=== PATIENT | male | born 1980 ===

== ENCOUNTER → 2017-11-25 | Outpatient (CLI) | payer BC ==
[~2017-11-25] MED LIST: ACYC-1 PO
[2017-11-25 15:13] LABS: PLATELET COUNT, AUTOMATED 315 K/uL (150-450)
--- NOTE | 2017-11-25 17:01 | RADIOLOGY IMAGING REPORT ---
FACILITY: [facility] PATIENT NAME: Kaiden Khan : 1980 MR: [id number] V: [id number] EXAM DATE: ORDERING PHYSICIAN: IVÁN OLIVO TECHNOLOGIST: Location: [facility] [place] Patient: Kaiden Khan : 1980 Visit/Account:[id number] Date of Sevice: 11/25/2017 EXAMINATION: CT ABDOMEN AND PELVIS WITHOUT CONTRAST COMPARISON: None. HISTORY: Right lower quadrant and right flank pain for one week. Hematuria. PROCEDURE: Multiplanar noncontrast CT of the abdomen and pelvis. One of the following dose optimizati on techniques was utilized in the performance of this exam: Automated exposure control; adjustment of the mA and/or kV according to the patient's size; or use of an iterative reconstruction technique. Specific details can be referenced in the facility's radiology CT exam operational policy. FINDINGS: Evaluation of the solid and viscus parenchymal organs and vascular structures is limited wi thout the benefit of IV contrast. Visualized thorax: Negative. Liver: Noncontrast imaging of the visualized liver is within normal limits. Gallbladder and biliary system: Negative Spleen: Punctate calcification suggestive of old granulomatous disease. Spleen size is normal. Pancreas: Noncontrast imaging of the pancreas is within normal limits. Adrenal glands: Negative. Kidneys and bladder: Right kidney moderate pelviectasis and to lesser extent caliectasis; no ureterec tasis. There are two 4 mm stones in the right kidney lower pole but no radiopaque ureteral stone. No radiopaque urolithiasis or evidence of an obstructive uropathy on the left. Urinary bladder is unrema rkable. Vessels: Within normal limits. Bowel and mesentery: Stomach is within normal limits. Prominent nondistended fluid-filled loops of sm all bowel. Appendix is within normal limits. Moderate amount of stool in the colon. No noncontrast CT evidence bowel or mesenteric inflammation. Pelvic organs: Negative. Lymph nodes: No adenopathy. Free air/free fluid: None. Abdominal wall and osseous structures: Negative. IMPRESSION: 1. Moderate right hydronephrosis. No obstructing radiopaque urolithiasis is identified and differenti al considerations include changes related to a recently passed stone; an obstructing radiolucent ston e; or a chronic partial UPJ obstruction. Consider referral to urology as clinically indicated. 2. Right kidney lower pole nonobstructing nephrolithiasis. Results were discussed with KEVYN Mcgregor, at 11/25/2017 4:55 PM. Report Dictated By: Wade Christie MD at 11/25/2017 4:24 PM Report E-Signed By: Wade Christie MD at 11/25/2017 4:56 PM WSN:[id number]
== END ==
LOC: LAB 14:37
PROVIDERS: ATTEND Internal Medicine
DX: N13.30 Unspecified hydronephrosis (principal); N20.0 Calculus of kidney; R31.9 Hematuria, unspecified; N50.819 Testicular pain, unspecified; R82.99 Other abnormal findings in urine
CPT/HCPCS: 36415; 74176; 81001; 82040; 82247; 82310; 82374; 82435; 82550; 82565; 82947; 84075; 84132; 84155; 84295; 84443; 84450; 84460; 84520; 85025

== ENCOUNTER 2017-12-04 00:23 | Day surgery (SDC) | payer BC ==
--- NOTE | 2017-12-03 19:05 | HISTORY AND PHYSICAL ---
DATE OF ADMISSION: December 04, 2017 CHIEF COMPLAINT Right-sided nephrosis with kidney stone and hematuria. HISTORY OF PRESENT ILLNESS Patient is a 37-year-old white male who is otherwise healthy, who originally presented to Dr. Ambrosio with an approximately one week history of right flank pain with radiation into his groin as well as blood in his urine. He was evaluated with a CT scan which revealed a dilated right renal pelvis, in addition to having a 5 x 7 x 8 mm calcification in the right lower pole. His ureter was not visualized and felt not to be dilated. He had good parenchyma on the right side. When see in the Urology Clinic on November 25, he was still having significant microscopic hematuria with approximately 25 red blood cells per high-power field, but no evidence of infection. He states that his pain had greatly improved over the past 24 hours when he was seen. His films were reviewed and discussed in detail. It appears that he possibly has an at least partial UPJ obstruction versus extrarenal pelvis. He does have a significant kidney stone in the lower pole which might be associated to his dilated collecting system on that side. His ureter does not appear to have dilated on his CT scan. These findings were discussed. He was informed that we need to evaluate his distal ureter with retrograde pyelogram and get some idea of its anatomy and possible relative obstruction at the UPJ area which may require ureteroscopy and/or stent placement. Depending on the first finding we are to proceed with possible extracorporeal shock wave lithotripsy and/or ureteroscopy to remove his current kidney stones. This will be followed by possible test to evaluate the drainage and degree of obstruction on the right side. PAST MEDICAL HISTORY None. PAST SURGICAL HISTORY None. ALLERGIES No known drug allergies. CURRENT MEDICATIONS Acyclovir. FAMILY HISTORY Noncontributory. ] SOCIAL HISTORY Patient is and lives in [place], [place]. He denies illicit drug use of tobacco. REVIEW OF SYSTEMS Patient denies shortness of breath, chest pain, nausea, vomiting, fever, chills , change in bowel habits, liver disease or bleeding disorder. PHYSICAL EXAMINATION GENERAL: Patient is a well-developed, well-nourished white male in no acute distress. HEENT: Exam is normocephalic, atraumatic. CHEST: Clear to auscultation bilaterally. CARDIOVASCULAR: Exam is regular rate and rhythm. ABDOMEN: Soft, nontender. No masses are palpated. GENITOURINARY: Exam is deferred to the OR. EXTREMITIES: Exam without clubbing, cyanosis or edema. NEUROLOGIC: Exam is nonfocal. IMPRESSION A 37-year-old white male with a dilated right renal pelvis and 8 mm lower pole stone with a history of gross hematuria. PLAN We will perform anesthetic cystoscopy followed by right retrograde pyelogram with possible stent placement and ureteroscopy and/or extracorporeal shock wave lithotripsy. MTDD
[2017-12-04] VITALS (8 sets, daily range): BP systolic 108–135; BP diastolic 65–78
[~2017-12-04] VITALS: Ht 167.6 cm; Wt 60.8 kg
[~2017-12-04 00:23] MED LIST changes: +ceFAZolin(*) 1 GM VIAL 1 GM in NS(*) 0.9% 100 ML ADDVANT BAG 100 ML IVPB ONE
[2017-12-04] MEDS ORDERED: HYDROCORTISONE 1% CR 28.35 GM TP ONE (07:08)
[2017-12-04] MEDS ORDERED: IOPAMIDOL-200 50 ML VIAL IS ONE (07:08)
[2017-12-04] MEDS ORDERED: PROPOFOL EMUL(*) 10MG/ML 20 ML 40 ML ONE (07:39)
[2017-12-04] MEDS ORDERED: KETOROLAC 30 MG/ML VIAL ONE (07:39)
[2017-12-04] MEDS ORDERED: LIDOCAINE MPF 1% 5 ML VIAL ONE (07:39)
[2017-12-04] MEDS ORDERED: DEXAMETHASONE SOD PHOS 10MG/ML ONE (07:39)
[2017-12-04] MEDS ORDERED: ONDANSETRON 4 MG/2 ML VIAL ONE (07:39)
[2017-12-04] MEDS ORDERED: fentaNYL CITR 100 MCG/2 ML AMP ONE ×2 (07:40→10:24)
[2017-12-04] MEDS ORDERED: FUROSEMIDE 40 MG/4 ML VIAL ONE (08:05)
[2017-12-04] MEDS ORDERED: ceFAZolin(*) 1 GM VIAL 1 GM in NS(*) 0.9% 100 ML ADDVANT BAG 100 ML IVPB ONE (08:25)
[2017-12-04] MEDS ORDERED: FAMOTIDINE 20 MG TAB PO ONE (08:25)
[2017-12-04] MEDS ORDERED: LIDOCAINE/SOD BICARB 8.4% SYR ID ONE (08:25)
[2017-12-04] MEDS ORDERED: MIDAZOLAM 2 MG/2 ML VIAL IVP PRN (08:25)
[2017-12-04] MEDS ORDERED: NORMOSOL R SOLN(*) 1000 ML BAG 1,000 ML IV PRN (08:25)
[2017-12-04] MEDS ORDERED: PHENYLEPHRINE/NS/PF 0.4MG/10ML ONE (08:41)
[2017-12-04] MEDS ORDERED: ePHEDrine 25 MG/5 ML DISP.SYR IVP ONE (08:41)
--- NOTE | 2017-12-04 08:46 | RADIOLOGY IMAGING REPORT ---
FACILITY: [facility] - [place] PATIENT NAME: Kaiden Khan : 1980 MR: [id number] V: [id number] EXAM DATE: ORDERING PHYSICIAN: NURYS SWAIN TECHNOLOGIST: Location: [facility] Patient: Kaiden Khan : 1980 Visit/Account:[id number] Date of Sevice: 11/27/2017 Exam type: TOMOGRAPHY AND KUB W/CASSETTE History: KIDNEY STONES Comparison: CT November 25, 2017. Findings: Two 4 mm calculi project over the lower pole of the right kidney. The left kidney is obscured by bow el gas. No calculi are identified along the expected course of the ureters. Bowel gas pattern is no nspecific. IMPRESSION: 1. Two 4 mm calculi project over the lower pole the right kidney Report Dictated By: Doreen Amor MD at 12/04/2017 8:40 AM Report E-Signed By: Doreen Amor MD at 12/04/2017 8:42 AM WSN:[email or web address]
[2017-12-04] MEDS ORDERED: IOPAMIDOL 61% 100 ML INFUS BTL 100 ML ONE (08:54)
[2017-12-04] MEDS ORDERED: BELLADONNA ALK/OPIUM 60MG SUPP PR ONE (10:04)
[2017-12-04] MEDS ORDERED: HYDR-385 PO (10:28)
[2017-12-04] MEDS ORDERED: DOCU-416 PO (10:29)
[2017-12-04] MEDS ORDERED: IBUP600T22 PO (10:30)
[2017-12-04] MEDS ORDERED: OXYB10TA16 PO (10:30)
[2017-12-04] MEDS ORDERED: TAMS0.4C25 PO (10:31)
[2017-12-04] MEDS ORDERED: PHEN200T32 PO (10:32)
--- NOTE | 2017-12-04 10:53 | RADIOLOGY IMAGING REPORT ---
FACILITY: [facility] PATIENT NAME: Kaiden Khan : 1980 MR: [id number] V: [id number] EXAM DATE: ORDERING PHYSICIAN: NURYS SWAIN TECHNOLOGIST: Location: [facility] Patient: Kaiden Khan : 1980 Visit/Account:[id number] Date of Sevice: 12/04/2017 Exam type: RETROGRADE PYELOGRAM History: KIDNEY STONES Comparison: CT abdomen pelvis November 25, 2017. Findings: 111 fluoroscopic spot images of the abdomen pelvis were submitted for interpretation. The total fluo roscopy time was 33 minutes. The fluoroscopy dose was 10.43 mGY . Contrast is identified in the mod erately dilated right renal collecting system. Two 4 mm calculi are seen in the lower pole calyces o f the right kidney. The right ureter does not appear dilated. Cystoscope projects over the bladder IMPRESSION: There is moderate dilatation of the right renal collecting system although an obstructing calculus or lesion is not seen. Two separate 4 mm calculi are present in lower pole calyces of the right kidney Report Dictated By: Doreen Amor MD at 12/04/2017 10:44 AM Report E-Signed By: Doreen Amor MD at 12/04/2017 10:49 AM WSN:[email or web address]
[2017-12-04] MEDS ORDERED: APAP/HYDROCODONE 325/5 TAB ONE (11:40)
--- NOTE | 2017-12-04 17:09 | OPERATIVE REPORT 1 ---
EVENT DATE: December 04, 2017 SURGEON: Kenneth Olson MD ANESTHESIOLOGIST: Juan Swan MD ANESTHESIA: General anesthetic. PREOPERATIVE DIAGNOSES 1. Right renal calculi times two. 2. Right pelvicaliectasis. 3. Hematuria. POSTOPERATIVE DIAGNOSES 1. Right renal calculi times two measuring 4 x 4 and 4 x 5 in the renal pelvis and lower pole. 2. Right ureteropelvic junction obstruction, partial. 3. Hematuria. PROCEDURES PERFORMED 1. Cystoscopy. 2. Right retrograde pyelogram. 3. Right internal double-J ureteral stent placement. 4. Right extracorporeal shock wave lithotripsy times two. ESTIMATED BLOOD LOSS 10 mL INTRAVENOUS FLUIDS Crystalloid. DRAINS 6-Icelandic x 28 cm Percuflex Plus stent on right. PATHOLOGY None. COMPLICATIONS None. CONDITION Patient taken to the recovery room awake, in stable condition. STATEMENT OF MEDICAL NECESSITY Patient is a 37-year-old white male who was referred to the Urology Clinic by Dr. Ambrosio for evaluation of hematuria and right flank pain. A CT scan was performed which revealed dilation of the right renal pelvis with two lower pole stones, both measuring approximately 4 mm in size. Urinalysis in the office revealed 25 red blood cells per high-power field without evidence of infection. It appeared on his film that the patient at least had a partial UPJ obstruction on the right side with developed kidney stones. He appeared to have good renal parenchyma on the right side leading to the diagnosis that this is a fairly new secondary UPJ or a partial obstruction. He is now being brought to the operating room for planned retrograde stent placement and treatment of kidney stones. DESCRIPTION OF OPERATION PERFORMED Patient was brought to the operating room. After general anesthetic was obtained, he was placed in the dorsal lithotomy position on the cystoscopic table. Anesthetic cystoscopy was performed with the 21-Icelandic Moran sheath and both the 30- and 70-degree lenses. He had a normal-appearing pendulous bulbar and membranous prostatic urethra. His bladder neck was open, but mildly friable. The remaining aspect of his bladder appeared normal with no lesions or tumors. He had no significant trabeculations. Both of his ureteral orifices were slit-like on the respective billy-trigone. At this point, a right retrograde pyelogram was performed by using an 8-Icelandic cone-tip catheter, injecting 7 mL of contrast material in a retrograde manner. Real-time fluoroscopic imaging was used. By my intraoperative interpretation, the patient appeared to have a normal ureter from ureteral orifice up to the renal pelvis. His renal pelvis was mildly dilated; however, his calices appeared relatively sharp. The ureteral insertion was approximately mid pelvis. Delayed imaging revealed prompt drainage from his ureter; however, he did have delayed drainage of contrast out to 10 minutes. Following this, the right ureteral orifice was cannulated with a 6-Icelandic opening access catheter, and a 0.035 Bentson wire was advanced up to the renal pelvis. The access catheter was removed. A 26 x 6 cm Contour stent was placed. The wire was removed. He was noted to have good curling in the renal pelvis by fluoroscopy and curling in the bladder by direct vision. At this point, a Grimaldo catheter was placed, and the patient was given 10 mg of Lasix IV in an attempt to promote diuresis and clearing of the contrast in the right collecting system. The patient was transferred from the cystoscopic table to the lithotripsy table. On fluoroscopic imaging on the lithotripsy table, he was noted to have more dilatation of the renal pelvis and blunting of the calices. It appeared that his curl had been lost out of the distal end of the stent. Fluoroscopy of the mid ureter revealed that the stent had done a complete 360 curl in the mid ureter, and it had moved out distally and was providing poor drainage. It was decided at this point to remove the stent and replace it with a second one. Therefore, the patient was placed in the dorsal lithotomy position on the lithotripsy table and prepped and draped sterilely. Anesthetic cystoscopy was performed. The previously placed stent was grasped at its distal end and brought out through the meatus. A 0.035 wire was advanced in the lumen of the stent, and under fluoroscopic imaging, advanced to the upper pole calyx. The stent was removed. This wire was backloaded onto the scope and then was used to place a 28 cm x 6-Icelandic Percuflex Plus stent. The wire was removed. He was noted to have good curling in the renal pelvis by fluoroscopy and good curling in the bladder by direct vision. At this point, the scope was removed, the Grimaldo catheter was replaced, and he was noted to have a prompt decreasing amount of contrast in the collecting system on that side. The two stones could be easily identified, one in the lower pole and one in the renal pelvis. The stone in the renal pelvis was first targeted with lithotripsy. The crosshairs were placed on the stone in two planes. Treatment was begun at a power setting of 1 and gradually increased to a power setting of 3 over the first 300 shocks. A three-minute pause was then performed, and treatment resumed. Intermittent two-plane fluoroscopy was used during treatment to keep the stone in stone fragment piles. At a treatment power of 7, no stone fragmentation was noticed. Therefore, the power was increased to 8. The stone was noted to fragment at approximately 1000 shocks. He received a total of 1500 shocks to this renal pelvis stone, and then attention was directed to lower pole stone. Again, this was placed in the crosshairs in two planes. Treatment was begun at a power setting of 6.5 and gradually increased to a power setting of 8. Again, fragmentation was noticed after approximately 700 shocks at this lower pole fragment. The patient received a total of 3000 shocks to the right kidney, at the conclusion which no further significant stone fragments could be identified. At the conclusion of the case, the patient was awakened in the operating room and taken to the recovery area in stable condition. PLAN The plan will be to allow the patient to have the Grimaldo catheter removed, and he will be discharged home today on Colace, [place], Motrin, Pyridium, Flomax, and Ditropan XL. The plan will be to have the patient call the office to schedule return to the operating room to remove his internal stent and perform a possible ureteroscopy to evaluate his ureter and UPJ area and remove any remaining fragments from the renal pelvis. Following this, we will likely need to perform a DTPA renal scan with Lasix washout to evaluate: 1) percentage of renal function, 2) any degree of obstruction. [facility]
== END 2017-12-04 11:15 | disposition home or self-care (01) ==
LOC: OR 00:23
PROVIDERS: ATTEND Urology
DX: N20.0 Calculus of kidney (principal); R31.9 Hematuria, unspecified; N28.89 Other specified disorders of kidney and ureter
CPT/HCPCS: 50590; 52005; 52332; 74018; 74420; 76100; 87088; J0690; J1100; J1885; J1940; J2001; J2250; J2370; J2405; J2704; J3010; J7050; Q9966; Q9967; C1769; C1894; C2617

== ENCOUNTER 2017-12-22 02:40 | Day surgery (SDC) | payer BC ==
--- NOTE | 2017-12-19 13:03 | HISTORY AND PHYSICAL ---
DATE OF ADMISSION: December 22, 2017 CHIEF COMPLAINT Hematuria with history of right kidney stones and dilation of renal pelvis. HISTORY OF PRESENT ILLNESS Patient is a 37-year-old white male who originally presented to Dr. Ambrosio with a history of flank pain and hematuria. CT scan revealed a dilated right renal pelvis and a normal ureter. He was also noted to have two 4 mm stones in his right lower pole. The patient was originally taken to the operating room on December 04, at which time he underwent right retrograde pyelogram which revealed a normal ureter up to a dilated renal pelvis. His caliceal system was relatively sharp and he had good preservation of renal parenchyma by his prior CT scan. There was some delayed drainage from the renal pelvis in the retrograde pyelogram. The patient subsequently underwent placement of a 6 x 28 cm Percuflex stent on the right side and underwent extracorporeal shock wave lithotripsy of his two stones. He is now being returned for follow-up ureteroscopy with removing of any remaining fragments and evaluation of his UPJ area. We was also briefly discussed possible retrograde endopyelotomy with laser with associated risk of bleeding, infection, need for embolization or even loss of kidney, but more likely a recurrence of obstruction. We have had a discussion that this would only be performed if this were a classic appearing significant obstruction and we were able to render him stone free before the incision, thereby limiting retroperitoneal migration of any fragments which might contribute to confusion in the future of stone status and/or resulting in inflammatory process near the incision. Our current plan is to perform ureteroscopy, render the patient stone free, then perform a DTPA renal scan to evaluate number one renal function and number two any degree of obstruction with subsequent repair as needed. PAST MEDICAL HISTORY None. PAST SURGICAL HISTORY As per HPI. ALLERGIES None. CURRENT MEDICATIONS * Acyclovir p.r.n. * Ditropan. * Pyridium. FAMILY HISTORY Noncontributory. SOCIAL HISTORY Patient is and lives in [place], [place]. REVIEW OF SYSTEMS Patient denies shortness of breath, chest pain, nausea, vomiting, fevers, chills , prior urinary tract infections or kidney stones or productive cough. PHYSICAL EXAMINATION GENERAL: Patient is a well-developed, well-nourished white male in no acute distress. HEENT: Exam is normocephalic, atraumatic. CHEST: Clear to auscultation bilaterally. CARDIOVASCULAR: Regular rate and rhythm. ABDOMEN: Soft, nontender. No masses are palpated. GENITOURINARY: Exam is deferred to the OR. EXTREMITIES: Exam without clubbing, cyanosis or edema. NEUROLOGIC: Exam is nonfocal. IMPRESSION A 37-year-old white male with a history of two 4 x 4 mm stones with a dilated right renal pelvis. He currently has an indwelling ureteral stent and is status post lithotripsy. PLAN We will perform anesthetic cystoscopy, removal of stent, followed by ureteroscopy and removing any remaining stone fragments and evaluation of his UPJ area. VALERIE
[2017-12-19 14:53] LABS: PLATELET COUNT, AUTOMATED 366 K/uL (150-450)
[~2017-12-22] VITALS: Ht 170.2 cm; Wt 62.1 kg
[~2017-12-22 02:40] MED LIST changes: +DOCU-416 PO; +HYDR-385 PO; +IBUP600T22 PO; +OXYB10TA16 PO; +PHEN200T32 PO; +TAMS0.4C25 PO; -ceFAZolin(*) 1 GM VIAL 1 GM in NS(*) 0.9% 100 ML ADDVANT BAG 100 ML IVPB ONE
[2017-12-22 06:23] VITALS: BP 128/86
[2017-12-22] MEDS ORDERED: IOPAMIDOL-200 50 ML VIAL IS ONE (06:47)
[2017-12-22] MEDS ORDERED: BELLADONNA ALK/OPIUM 60MG SUPP PR ONE (06:47)
[2017-12-22] MEDS ORDERED: ONDANSETRON 4 MG/2 ML VIAL ONE (07:04)
[2017-12-22] MEDS ORDERED: fentaNYL CITR 100 MCG/2 ML AMP ONE ×2 (07:04→08:43)
[2017-12-22] MEDS ORDERED: DEXAMETHASONE SOD 4 MG/ML VIAL ONE (07:04)
[2017-12-22] MEDS ORDERED: LIDOCAINE MPF 1% 5 ML VIAL ONE (07:04)
[2017-12-22] MEDS ORDERED: PROPOFOL EMUL(*) 10MG/ML 20 ML 20 ML ONE ×2 (07:04→07:38)
[2017-12-22] MEDS ORDERED: KETAMINE HCL 200 MG/20 ML MDV ONE (07:10)
--- NOTE | 2017-12-22 07:36 | RADIOLOGY IMAGING REPORT ---
FACILITY: [facility] - [place], [place] PATIENT NAME: Kaiden Khan : 1980 MR: [id number] V: [id number] EXAM DATE: ORDERING PHYSICIAN: NURYS SWAIN TECHNOLOGIST: Location: [facility] [place] Patient: Kaiden Khan : 1980 Visit/Account:[id number] Date of Sevice: 12/22/2017 ABDOMEN PELVIS ESWL CYSTO W/O EXAMINATION: CT abdomen/pelvis without IV contrast HISTORY: Preop TECHNIQUE: CT scan of the abdomen and pelvis performed from the lung base through pubic symphysis fol lowed by scan from lung base through pubic symphysis after administration of IV contrast. COMPARISON STUDIES: 11/25/2017 One of the following dose optimization techniques was utilized in the performance of this exam: Autom ated exposure control; adjustment of the mA and/or kV according to the patient's size; or use of an i terative reconstruction technique. Specific details can be referenced in the facility's radiology C T exam operational policy. FINDINGS: Please note that this exam was tailored for detection of urinary stones. Portions of the upper abdome n may not be included. Also, with intravenous contrast, sensitivity to detection of parenchymal disea se is limited. Right kidney and ureter: There is a double-J ureteral stent within the right kidney. Stent is coiled within the bladder and within the right renal pelvis. There is a stone/cluster stones in the lower as pect of the right kidney measuring 6 mm in greatest dimension. Additional small millimeter-2 mm stone s are seen in the central aspect of the kidney Left kidney and ureter: No left renal stones identified. Bladder: Negative Liver/Biliary: Negative Pancreas: Negative Spleen: Negative Adrenal glands: Negative Pelvic structures: Negative Bowel/peritoneum/mesenteries: Fecal impaction Vessels: Negative Musculoskeletal/body wall: Negative Lymph node assessment: Negative Lower chest: Negative IMPRESSION: 1. Negative CT scan of the abdomen/pelvis for acute pathology. 2. Double-J ureteral stent within the right kidney. Right renal stones as described Report Dictated By: Ghulam Lozada MD at 12/22/2017 7:21 AM Report E-Signed By: Ghulam Lozada MD at 12/22/2017 7:32 AM WSN:[id number]
[2017-12-22] MEDS ORDERED: KETOROLAC 30 MG/ML VIAL ONE (08:39)
[2017-12-22] MEDS ORDERED: MIDAZOLAM 2 MG/2 ML VIAL IVP PRN (09:15)
[2017-12-22] MEDS ORDERED: NORMOSOL R SOLN(*) 1000 ML BAG 1,000 ML IV PRN (09:15)
[2017-12-22] MEDS ORDERED: FAMOTIDINE 20 MG TAB PO ONE (09:15)
[2017-12-22] MEDS ORDERED: LIDOCAINE/SOD BICARB 8.4% SYR ID ONE (09:15)
[2017-12-22] MEDS ORDERED: ceFAZolin(*) 1 GM VIAL 1 GM in NS(*) 0.9% 100 ML ADDVANT BAG 100 ML IVPB ONE (09:15)
[2017-12-22] MEDS ORDERED: HYDR-4309 PO (10:40)
[2017-12-22] MEDS ORDERED: TAMS0.4C25 PO (10:41)
[2017-12-22] MEDS ORDERED: PHEN200T32 PO (10:42)
[2017-12-22] MEDS ORDERED: OXYB10TA21 PO (10:43)
--- NOTE | 2017-12-22 11:08 | RADIOLOGY IMAGING REPORT ---
FACILITY: [facility] PATIENT NAME: Kaiden Khan : 1980 MR: [id number] V: [id number] EXAM DATE: ORDERING PHYSICIAN: NURYS SWAIN TECHNOLOGIST: Location: [facility] Patient: Kaiden Khan : 1980 Visit/Account:[id number] Date of Sevice: 12/22/2017 EXAMINATION: OR fluoroscopy films abdomen 17 views HISTORY: Retrograde urethrogram. Hematuria. COMPARISON: CT abdomen and pelvis from 12/22/2017. FLUOROSCOPY TIME: 1:22 minutes. DOSE: Cumulative dose (Ka,r) was 35.8 mGy. FINDINGS: 17 fluoroscopic images of the abdomen are obtained intraoperatively. The images are not l abeled right or left. There is a ureteroscope and ureteral stent visualized, presumably on the right . Tip of the ureteroscope is in the renal pelvis with injection of contrast. IMPRESSION: Retrograde ureterogram in progress. Please see the performing physician's notes for full details. Report Dictated By: Emy Marks MD at 12/22/2017 10:49 AM Report E-Signed By: Emy Marks MD at 12/22/2017 11:04 AM WSN:[email or web address]
[2017-12-22 11:10] VITALS: BP 121/69
[2017-12-22] MEDS ORDERED: APAP/HYDROCODONE 325/5 TAB PO ONE (11:20)
[2017-12-22 11:30] VITALS: BP 117/79
[2017-12-22 11:31] VITALS: BP 115/75
--- NOTE | 2017-12-23 04:24 | OPERATIVE REPORT 1 ---
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 PROCEDURE PERFORMED 1. Cystoscopy. 2. Grasping and removal of right double J ureteral stent. 3. Right flexible ureteroscopy with grasping and removal of numerous renal calculi fragments. 4. Right retrograde pyelogram. 5. Right double J ureteral stent placement. ESTIMATED BLOOD LOSS 10 mL. IV FLUIDS Crystalloid. DRAINS 6 [place] x 28 cm Contour stent on right. PATHOLOGY Stone fragment sent for chemical analysis. COMPLICATIONS None. CONDITION Patient taken to recovery room awake and in stable condition. STATEMENT OF MEDICAL NECESSITY Patient is a 37-year-old white male who originally presented to Dr. Ambrosio with a history of right flank pain and hematuria. CT scan revealed he had two 4 mm stones and a dilated right renal collecting system. The ureter was not abnormal in appearance, and he had good preserved renal parenchyma. He was originally taken to the operating room on December 04, 2017. At that time, a retrograde pyelogram was performed, which confirmed a normal right ureter from the ureteral orifice up to the level of the renal pelvis. At this point, there was some mild narrowing at the junction with a moderately high insertion. He had a dilate renal pelvis, however, his calyceal system appeared relatively normal with sharp calyces. He did have delayed drainage on this imaging. He was left with a 28 cm x 6 [place] Percuflex Plus stent and underwent extracorporeal shockwave lithotripsy of these two stones. His preop x-ray today revealed good stent placement. He has had fragmentation of the larger stones into three smaller areas of fragments in the lower and mid poles. He is now being brought to the operating room for planned ureteroscopy with removal of any remaining fragments in his collecting system as well as to evaluate his UPJ through the ureteroscope. The current plan is after he is deemed stone free , we will remove the stent and perform a DTPA renal scan to document percentage of renal function and degree of obstruction to proceed with repair as indicated. DESCRIPTION OF OPERATION PERFORMED Patient was brought to the operating room. After general anesthetic was obtained, he was placed in the dorsal lithotomy position on the cystoscopic table and prepped and draped in usual sterile manner. Anesthetic cystoscopy was performed with the 21-[place] rigid Moran scope and 30 degree lens. He had a normal-appearing pendulous, bulbar, membranous and prostatic urethra. His stent was seen emanating from the right ureteral orifice. At this point, a 6 [place] open end access catheter was advanced alongside the stent to the mid ureter. A sensor double floppy wire was then advanced in the lumen of the access catheter and advanced up to the kidney and the upper pole calyx. At this point, the access catheter was removed. The rigid grasping forceps were then used to gently remove the right ureteral stent intact. The wire was then used to place a ureteral navigator sheath of 11 x 13 [place] x 20 x 46 cm in length. This advanced over the wire with minimal resistance under the aid of fluoroscopic imaging. Before this was performed, an 8/10 dilating system was placed on the single wire which had been placed at the beginning of the case to place a second wire alongside the first wire. This first wire was used as a safety wire, and the working wire was used to place the navigator ureteral access sheath. After the access sheath had been advanced to the level of the UPJ, the working wire was removed, and this access sheath was used to perform flexible ureteroscopy using the Moran Cobra scope. Flexible renoscopy in retrograde manner was then performed, starting in upper, mid and lower pole calyces. The upper and mid calyces appeared normal without evidence of any stone fragments. There was a moderate amount of stone fragments in two primary areas in the lower pole calyx. The Ricky basket was then used to engage these small stone fragments and remove them down the ureteral access sheath to the outside. This was done numerous times over the course of treatment. Hutchinson through treatment, the 0 tip basket was used in place of the Ricky to grab some stones more lateral in position to the end of the scope. In addition, the Tricep radial grasping forceps were also used to engage a few of the small fragments. The largest of these fragments was approximately 3 mm in size, but most were in the 1-2 mm range. Following extensive basketing of these fragments , a retrograde pyelogram was performed through the sheath to clearly delineate the calyceal system. Ureteroscopy of each of the calyces were performed using the roadmap of the retrograde pyelogram. At the conclusion of the procedure, no fragment greater than 1 mm could be identified in the upper, mid or lower pole calyces. There were a few small dust fragments less than 1 mm in size that numbered five to six. At this point, pull out flexible ureteroscopy was performed. The UPJ area was visualized after pulling the navigator sheath back to the proximal ureter. It was moderately stenotic, however, the scope could be advanced through this area into the bladder without much resistance. It appeared that the redundancy at this area was more in the 10 to 2 o'clock position than posteriorly. The remainder of ureter appeared normal on pull back ureteroscopy without evidence of stones, strictures or ureteral injury. At this point, the safety wire was back loaded into the cystoscope, and this was used to place a 6 [place] x 28 cm Contour stent with a string attached to the distal end. The bladder was drained through the cystoscopic sheath. The string was secured to the patient's penile shaft with a Tegaderm dressing. Final fluoroscopic image was obtained, which showed good stent placement with a good curl in the upper pole calyx and good curl in the bladder. A B and O suppository was given at the conclusion of the case. The patient was awakened in the operating room and taken to the recovery area in stable condition. PLAN The plan will be to allow the patient to be discharged home today on Asher, Colace, Flomax, Ditropan XL, Motrin and Pyridium. We will plan to see him in the urology clinic in approximately seven days for stent removal via the string , and then to schedule a DTPA renal scan to evaluate degree of obstruction and percentage of function from the right to left kidney. VALERIE
== END 2017-12-22 11:10 | disposition home or self-care (01) ==
LOC: OR 02:40
PROVIDERS: ATTEND Urology
DX: N20.0 Calculus of kidney (principal)
CPT/HCPCS: 36415; 51610; 52332; 52352; 74176; 74450; 81001; 82365; 85025; 87088; 88300; J0690; J1100; J1885; J2001; J2250; J2405; J2704; J3010; J3490; J7050; Q9966; 82310; 82374; 82435; 82565; 82947; 84132; 84295; 84520; C1758; C1769; C1894; C2617

== ENCOUNTER → 2018-01-12 | Outpatient (CLI) | payer BC ==
[~2018-01-12] MED LIST changes: +HYDR-4309 PO; +OXYB10TA21 PO
--- NOTE | 2018-01-12 18:07 | RADIOLOGY IMAGING REPORT ---
FACILITY: [facility] PATIENT NAME: Kaiden Khan : 1980 MR: [id number] V: [id number] EXAM DATE: ORDERING PHYSICIAN: NURYS SWAIN TECHNOLOGIST: Location: [facility] Patient: Kaiden Khan : 1980 Visit/Account:[id number] Date of Sevice: 01/12/2018 Exam type: KIDNEY W/PHARMACEUTICAL History: Right hydronephrosis, hematuria, stones Comparison: CT abdomen pelvis December 22, 2017. Findings: The patient was injected intravenously with 20.1 mCi of technetium 99m DTPA. Flow images were obtained over both kidneys and time activity curves were generated. Split renal fun ction demonstrated 49.5% of the flow over the left kidney and 50.5% over the right kidney. A normal washout curve was demonstrated from the left kidney. 40 mg of Lasix was administered intrav enously at 23 minutes The T1 half Lasix of the left kidney was seven minutes. There was delayed excretion from the right kidney. Following the Lasix injection the T1 half Lasix o f the right kidney was 9.7 seconds this would be consistent with a type III a curve. IMPRESSION: 1. Split renal function demonstrates symmetric flow to both kidneys Upper normal washout curve was identified from the left kidney There was delayed excretion from the right kidney however following Lasix administration the T1 half Lasix on the right was 9.7 seconds which will be consistent with a type III a curve (dilated, nonobst ructed collecting system) Report Dictated By: Doreen Amor MD at 01/12/2018 5:58 PM Report E-Signed By: Doreen Amor MD at 01/12/2018 6:04 PM WSN:[email or web address]
== END ==
LOC: NUC 00:38
PROVIDERS: ATTEND Urology
DX: N13.30 Unspecified hydronephrosis (principal); R31.0 Gross hematuria; N20.0 Calculus of kidney
CPT/HCPCS: A9539